=== PATIENT | male | born 1955 | race Caucasian/White ===

== ENCOUNTER → 2022-01-25 | Outpatient (CLI) | payer OTHER ==
--- NOTE | 2022-01-25 15:54 | KCIC ---
RS Compliance Statement: One or more of the following individualized dose reduction techniques were utilized for this examinat ion: 1. Automated exposure control 2. Adjustment of the mA and/or kV according to patient size 3. Use of iterative reconstruction technique Coronary calcium score CT chest without contrast History: Increased cholesterol, hypertension. Technique: With retrospective electrocardiogram gating axial reconstructed noncontrast images of the chest at the level of the coronary arteries was performed. Images were post processed on workstation and calcium score calculated using the modified Agatston Janowitz protocol. Findings: Total coronary calcium score is 131.1. This is a moderate plaque burden and moderate cardio vascular disease risk. This is based on the calcium score of 0 of the left main coronary artery, scor e of 121.6 of the left anterior descending artery, score of 0.3 of the left circumflex artery and sc ore of 9.2 of the right coronary artery. Noncoronary findings demonstrate normal caliber great vessels. There is severe calcific aortic valve stenosis. Cardiac size is normal, no pericardial effusion. There is a 1.3 cm hypodensity in the left hepatic lobe, incompletely characterized. Common etiologies would be a cyst or hemangioma. No pleural abnormality is seen. There are tiny bilateral calcified granulomas. 4 mm nodule along the minor fiss ure may be a perifissural lymph node. Visualized lungs otherwise clear. IMPRESSION: 1. Patient's total calcium score is 131.1. 2. There is severe calcific aortic valve stenosis. Electronically signed by: Shivam Rasheed MD (01/25/2022 3:51 PM) [id number]
== END ==
LOC: KCIC CT 13:47
PROVIDERS: ATTEND Family Medicine
DX: I25.10 Atherosclerotic heart disease of native coronary artery without angina pectoris (principal); I35.1 Nonrheumatic aortic (valve) insufficiency; J84.10 Pulmonary fibrosis, unspecified; E78.00 Pure hypercholesterolemia, unspecified; I10 Essential (primary) hypertension
CPT/HCPCS: 75571